=== PATIENT | male | born 1970 | race Caucasian/White ===

== ENCOUNTER 2023-11-17 02:34 | Observation (INO) | payer OTHER ==
[2023-11-17] MEDS ORDERED: Aspirin Chewable 81 MG TAB ONE (03:37)
[2023-11-17] MEDS ORDERED: Nitroglycerin 0.4 MG TAB 1 EACH ONE (03:38)
[2023-11-17 04:00] LABS: #Eosinphils 0.4 thou/uL (0.0-0.7); #Monocytes 0.6 thou/uL (0.11-0.59); #Neutrophils 5.2 thou/uL (1.40-6.50); %Basophils 0.3 % (0.0-1.0); %Lymphocytes 27.5 % (21.0-51.0); %Neutrophils 59.6 % (42.0-75.0); Hemoglobin 14.9 g/dL (14.0-18.0); Mean Corpuscular HGB CONC 34.7 g/dL (32.0-36.0); Mean Corpuscular Hemoglobin 31.5 pg (27.0-31.0); Mean Corpuscular Volume 90.9 fl (78.0-98.0); Mean Platelet Volume 11.5 fL (7.4-10.4); Platelet Count 260 10x3/uL (130-400); RBC Distribution Width 13.2 % (11.5-14.5); Red Blood Cell (RBC) Count 4.73 mill/uL (4.70-6.10); White Blood Cell (WBC) Count 8.8 10x3/uL (4.8-10.8)
[2023-11-17 04:20] LABS: ALT (SGPT) 35 U/L (8-55); AST (SGOT) 23 U/L (5-34); Albumin 4.3 g/dL (3.5-5.0); Alkaline Phosphatase 132 U/L (40-110); Anion Gap 17 mmol/L (10-20); BUN (Urea Nitrogen) 7 mg/dL (8.9-20.6); Bilirubin, Total 0.5 mg/dL (0.2-1.2); Calc. Creatinine Clearance 0 mL/min (70-130); Calcium 9.2 mg/dL (7.8-10.44); Carbon Dioxide 21 mmol/L (22-29); Chloride 103 mmol/L (98-107); Estimated GFR 107; Globulin 3.2 g/dL (2.4-3.5); Glucose 99 mg/dL (70-105); Lipase 42 U/L (8-78); Potassium 4.3 mmol/L (3.5-5.1); Protein, Total 7.5 g/dL (6.0-8.3); Sodium 137 mmol/L (136-145)
[2023-11-17 04:22] LABS: Troponin I Less than 0.010 ng/mL (< 0.028)
[2023-11-17 07:10] LABS: Troponin I 0.019 ng/mL (< 0.028)
[2023-11-17] MEDS ORDERED: Bisacodyl 5 MG TAB PO PRN (07:12)
[2023-11-17] MEDS ORDERED: Nitroglycerin 0.4 MG TAB (25 Tab Bottle) SL PRN (07:12)
[2023-11-17] MEDS ORDERED: Bisacodyl 10 MG SUPP PR PRN (07:12)
[2023-11-17] MEDS ORDERED: Acetaminophen 325 MG TAB PO PRN (07:12)
[2023-11-17] MEDS ORDERED: Ondansetron PF 4 MG/2 ML Vial IVP PRN (07:12)
[2023-11-17] MEDS ORDERED: Senokot S 8.6-50 MG TAB PO PRN (07:12)
[2023-11-17] MEDS: Aspirin Chewable 81 MG TAB PO SCH (09:12)
[2023-11-17 10:17] LABS: Influenza A by NAA Not Detected (NotDetected); Influenza B by NAA Not Detected (NotDetected); RSV by NAA Not Detected (NotDetected); SARS-CoV-2 NAA Rapid Test DETECTED (NotDetected)
[2023-11-17 13:35] LABS: Troponin I Less than 0.010 ng/mL (< 0.028)
[2023-11-17 13:48] VITALS: BMI 35.6
[2023-11-17] MEDS ORDERED: Iopamidol-370 76% 500 ML MDV (1 ML CHARGE) ONE (16:02)
[2023-11-17] MEDS: Atorvastatin Calcium 40 MG TAB PO SCH (21:20)
[2023-11-18 03:40] LABS: Base Excess -0.1 mEq/L (-2.0 to +3.0); Calcium, Ionized (venous) 1.14 mmol/L (1.16-1.32); Chloride (VBG) 103 mmol/L (98-106); Hematocrit-VBG 48 % (42.0-52.0); Hemoglobin (Hb) 16.3 g/dL (13.1-17.2); Potassium (VBG) 4.11 mmol/L (3.70-5.30); Sodium 140 mmol/L (133-146)
[2023-11-18 04:02] LABS: #Eosinphils 0.6 thou/uL (0.0-0.7); #Monocytes 0.7 thou/uL (0.11-0.59); #Neutrophils 4.3 thou/uL (1.40-6.50); %Basophils 0.5 % (0.0-1.0); %Eosinophils 6.3 % (0.0-10.0); %Lymphocytes 36.4 % (21.0-51.0); %Monocytes 7.8 % (0.0-10.0); %Neutrophils 48.3 % (42.0-75.0); Hematocrit 45.2 % (42.0-52.0); Hemoglobin 15.7 g/dL (14.0-18.0); Mean Corpuscular HGB CONC 34.7 g/dL (32.0-36.0); Mean Corpuscular Hemoglobin 31.1 pg (27.0-31.0); Mean Corpuscular Volume 89.5 fl (78.0-98.0); Mean Platelet Volume 11.2 fL (7.4-10.4); Platelet Count 265 10x3/uL (130-400); RBC Distribution Width 13.3 % (11.5-14.5); Red Blood Cell (RBC) Count 5.05 mill/uL (4.70-6.10); White Blood Cell (WBC) Count 8.8 10x3/uL (4.8-10.8)
[2023-11-18 04:13] LABS: Hemoglobin A1c 5.7 % (4.0-6.0)
[2023-11-18 04:52] LABS: ALT (SGPT) 35 U/L (8-55); AST (SGOT) 23 U/L (5-34); Albumin 4.5 g/dL (3.5-5.0); Alkaline Phosphatase 136 U/L (40-110); Anion Gap 17 mmol/L (10-20); BUN (Urea Nitrogen) 10 mg/dL (8.9-20.6); Bilirubin, Direct 0.2 mg/dL (0.1-0.3); Bilirubin, Total 0.8 mg/dL (0.2-1.2); Calc. Creatinine Clearance 163 mL/min (70-130); Calcium 9.8 mg/dL (7.8-10.44); Carbon Dioxide 22 mmol/L (22-29); Cardiac Risk 9.3 (Less than 4.5); Chloride 103 mmol/L (98-107); Cholesterol 233 mg/dl (< 200 Desired); Estimated GFR 104; Glucose 91 mg/dL (70-105); HDL Cholesterol 25 mg/dL (>60 Neg Risk); LDL Cholesterol, Calculated 141 mg/dL; Magnesium 2.1 mg/dL (1.6-2.6); Protein, Total 7.5 g/dL (6.0-8.3); Sodium 138 mmol/L (136-145); Triglycerides 334 mg/dL (Less than 150)
[2023-11-18 05:12] LABS: HBCM Index 0.08 S/CO (0-0.79); HBSAg Index 0.27 S/CO (0-0.99); Hep A IgM AB Non-Reactive (NonReactive); Hep A IgM S/CO 0.17 S/CO (0-0.79); Hep B Surf Ag Non-Reactive S/CO (NonReactive); Hep C IgG Ab Non-Reactive S/CO (NonReactive); Hepatitis B Core IgM Abs Non-Reactive S/CO (NonReactive)
[2023-11-18] MEDS: Enoxaparin 40 MG (0.4 mL) SYRINGE SC SCH (09:11)
[2023-11-18 12:45] VITALS: TEMP 98.2
[2023-11-18 13:09] VITALS: BP 133/88
== END 2023-11-18 15:09 | disposition home or self-care (01) ==
LOC: ERS 02:34 → ERHOLD 07:16 → 2SW 13:30
PROVIDERS: ADMIT Family Medicine; ATTEND Internal Medicine
PROC: B246ZZZ Ultrasonography of Right and Left Heart (ICD-10-PCS; principal; 2023-11-17)
DX: R07.89 Other chest pain (principal); R06.02 Shortness of breath; F17.220 Nicotine dependence, chewing tobacco, uncomplicated; R79.1 Abnormal coagulation profile; R06.81 Apnea, not elsewhere classified; I10 Essential (primary) hypertension; K76.0 Fatty (change of) liver, not elsewhere classified; U07.1 COVID-19; Z85.830 Personal history of malignant neoplasm of bone; F12.90 Cannabis use, unspecified, uncomplicated
CPT/HCPCS: 0241U; 36415; 71045; 71275; 80053; 80061; 80074; 80076; 82805; 83036; 83690; 83735; 83880; 84443; 84484; 85025; 85379; 86850; 86900; 86901; 93005; 93306; 93970; 94760; 96372; G0378; J1650